=== PATIENT | female | born 1970 | race Caucasian/White ===

== ENCOUNTER → 2017-04-21 | Outpatient (CLI) | payer OTHER ==
--- NOTE | 2017-04-21 23:30 | HKNOTE ---
DATE OF SERVICE: 04/21/2017 CHIEF COMPLAINT: Left knee pain. HISTORY OF PRESENT ILLNESS: This is a 47-year-old female complaining of pain in the left knee. She states that the pain has been worsening over the last year. She has had previous physical therapy, pain medications, as well as corticosteroid injection. She states that the injections have provide d minimal pain relief. She does not use any braces. She does not use any assistive devices. She d enies any groin or back pain. She has no other complaints. GAIT: Nonantalgic gait, reciprocal gait pattern. PHYSICAL EXAMINATION: Left knee: Neutral alignment. Tender over the medial joint line. Nontender over the lateral joint line. There is 0 to 130 degree range of motion. Stable to varus and valgus stress. Negative Del, negative anterior drawer, negative posterior drawer, negative Layne's . X-RAYS, LEFT KNEE: Three views of the left knee demonstrate medial joint space narrowing. There ar e no peripheral osteophytes. The patellofemoral joint and the lateral compartments are maintained. IMPRESSION: A 47-year-old female with left knee osteoarthritis. PLAN: We will request authorization for left knee Monovisc injection. I discussed weight loss with the patient. She will follow up pending authorization. Dictated By: KAMILLA FAGAN/ZHEN Conf#: [id number] DID#: [id number]
== END | disposition home or self-care (01) ==
LOC: HKI 14:35
PROVIDERS: ATTEND Orthopaedic Surgery Adult Reconstructive Orthopaedic Surgery
DX: M17.12 Unilateral primary osteoarthritis, left knee (principal)
CPT/HCPCS: G0463

== ENCOUNTER → 2017-05-02 | Outpatient (CLI) | payer OTHER ==
--- NOTE | 2017-05-02 10:00 | PN ---
Date/Time of Note Date/Time of Note DATE: 05/02/17 TIME: 09:56 Outpatient Progress Note Chief Complaint Left knee Monovisc injection HPI 47-year-old female presents today for left knee Monovisc injection. Last seen on 04/21/2017 in which gel injection was recommended. Since she was last seen she continues with pain primarily with weightbearing and activity that can reach up to and 7-8/10 on the pain scale. Pain is also significant in the mornings when she wakes up. Denies any falls or injury since she was last seen. Denies any acute changes. Review of Systems Const: No Fever, no chills, no Fatigue, normal appetite, no diaphoresis. Resp: No SOB, no wheezing, no chest pain. CV: No chest pain, no palpitaions, no RUIZ. Physical Exam Blood pressure is 122/57, temperature is 98, pulse is 69, respiratory rate is 12, height is 5 foot 3 inches, weight is 178 pounds General Appearance: well-developed, well-nourished, in no acute distress. Left knee: Patient is able to extend up to 0 and flex up to 130. No tenderness to palpation on exam today. Pain with weightbearing. Gait is normal but antalgic. Assessment/Plan * Monovisc injection to the left knee performed today. Local anesthesia with 1 % lidocaine was injected to the knee after the area was cleaned with Betadine swab. 25-gauge needle used to inject lidocaine. Follow-up injection using 22- gauge needle with Monovisc. Patient tolerated the procedure well. Observe for 5 minutes prior to discharge. * Patient given option of follow-up in 2 weeks after injection for repeat evaluation to see how she is doing. Patient is aware that expected relief is for 6-9 months status post gel injection. May apply ice today. Limit activity today. * Patient may follow-up in 2 weeks for repeat evaluation. HENRI GARCIA PA-C May 02, 2017 10:00
== END | disposition home or self-care (01) ==
LOC: HKI 09:33
PROVIDERS: ATTEND Orthopaedic Surgery Adult Reconstructive Orthopaedic Surgery
DX: M25.562 Pain in left knee (principal)
CPT/HCPCS: 20610; J7327; Z7610

== ENCOUNTER → 2018-04-18 | Outpatient (CLI) | END | disposition home or self-care (01) ==